=== PATIENT | female | born 1950 | race Caucasian/White ===

== ENCOUNTER → 2024-09-22 | Outpatient (CLI) | payer MEDICARE ==
--- NOTE | 2024-09-22 08:12 | US ---
EXAMINATION TYPE: US duplex aorta DATE OF EXAM: 09/22/2024 COMPARISON: NONE CLINICAL INDICATION: Female, 74 years old with history of Z13.6 SCREENING FOR CARDIOVASCULAR DISORDER S; screening, no family history, no symptoms TECHNIQUE: Multiple sonographic images of the abdominal aorta are obtained with grayscale and color D oppler imaging. FINDINGS: EXAM MEASUREMENTS: Abdominal Aorta: Proximal: 2.3 x 2.3cm Mid: 1.8 x 1.7cm Distal: 1.5 x 1.5cm Bifurcation: Right Iliac: 0.9cm Left Iliac: 0.9cm LUMBER HANDLER NOTES: Normal appearing aorta IMPRESSION: No sonographic evidence for abdominal aortic aneurysm. [facility], Workstation: [id number], 09/22/2024 8:09 AM
== END | disposition home or self-care (01) ==
LOC: RADUSWWP 06:54
PROVIDERS: ATTEND Family Medicine
DX: Z13.6 Encounter for screening for cardiovascular disorders (principal)
CPT/HCPCS: 93979

== ENCOUNTER → 2024-10-30 | Outpatient (CLI) | payer MEDICARE ==
--- NOTE | 2024-10-30 13:27 | MM ---
Reason for Exam: Screening (asymptomatic). Last mammogram was performed 1 year(s) and 4 month(s) ago. Patient History: Menarche at age 13. First Full-Term at age 23. Hysterectomy at age 31. Patient used Estrogen for 2 years. Patient used Hormonal Contraceptives for 9 years. Sister had breast cancer under age 50. Risk Values: Coco 5 year model risk: 3.4%. NCI Lifetime model risk: 7.7%. Prior Study Comparison: 02/07/2021 Bilateral MG 3D screening mammo w/cad, [facility]. 05/22/2022 Bilateral MG 3D screening mammo w/cad, [facility]. 06/23/2023 Bilateral MG 3D screening mammo w/cad, [facility]. Tissue Density: There are scattered areas of fibroglandular density. Findings: Analyzed By CAD. There is no suspicious group of microcalcifications or new suspicious mass in either breast. Overall Assessment: Negative, BI-RAD 1 Management: Screening Mammogram of both breasts in 1 year. . Patient should continue monthly self-breast exams. A clinical breast exam by your physician is recommended on an annual basis. This exam should not preclude additional follow-up of suspicious palpable abnormalities. Note on Coco scores and lifetime risk: 1. A Coco score greater than 3% is considered moderate risk. If this is the case, consider specialist referral to assess eligibility for a risk reducing agent. 2. If overall lifetime risk for the development of breast cancer is 20% or higher, the patient may qualify for future screening with alternating mammogram and breast MRI. [facility], , 10/30/2024 1:23 PM. Electronically signed and approved by: Gato Meyers M.D. Radiologis
== END | disposition home or self-care (01) ==
LOC: RADMAMWWP 12:16
PROVIDERS: ATTEND Family Medicine
DX: Z12.31 Encounter for screening mammogram for malignant neoplasm of breast (principal); R92.323 Mammographic fibroglandular density, bilateral breasts; Z92.0 Personal history of contraception; Z80.3 Family history of malignant neoplasm of breast
CPT/HCPCS: 77063; 77067